=== PATIENT | male | born 1950 | race Caucasian/White ===

== ENCOUNTER 2018-10-31 04:55 | Day surgery (SDC) | payer OTHER, MEDICARE ==
[2018-10-19 08:21] VITALS: BMI 27.1
--- NOTE | 2018-10-31 08:20 | HP ---
[facility] - Chief Complaint Chief Complaint: left knee pain - Past Medical History Allergies/Adverse Reactions: Allergies Allergy/AdvReac Type Severity Reaction Status Date / Time No Known Allergies Allergy Verified 10/31/18 07:49 - Current Medications Current Medications: Home Medications Medication Instructions Recorded Atorvastatin Ca [Lipitor] 10 mg PO HS 10/19/18 Cholecalciferol (Vitamin D3) 1,000 unit PO DAILY 10/19/18 [Vitamin D3 -] Multivitamin [Multiple Vitamins] 1 each PO DAILY 10/19/18 Ranitidine [Zantac -] 150 mg PO BID PRN 10/19/18 Vitamin E 400 unit PO DAILY 10/19/18 Oxycodone HCl/Acetaminophen 1 tab PO Q6H #20 tablet MDD 4 10/31/18 [Percocet 5-325 mg Tablet] Satellite Physical Exam - Physical Examination Vital Signs: Vital Signs Period Temp Pulse Resp BP Sys/Alicia Pulse Ox Last 24 Hr 97.7 F-97.7 F 72-72 20-20 142-142/85-85 99 General Appearance: Well Nourished, Well Developed, Alert & Oriented x3 ENT: Clear Lung: Normal air movement Heart: Regular rate & rhythm Extremities: Other (left knee- + swelling, + ttp ,decr rom, + mcmurrays, nvi MRI + mt) Neurological: Intact, Alert, Oriented Satellite Impression/Plan - Impression/Plan Impression: left knee internal derangement Operative Procedure: left knee arthroscopy Date to be Performed: 10/31/18
[2018-10-31] MEDS ORDERED: LIDOCAINE 1%-EPI 1:100,000 30 ML MDV IJ ONE (08:56)
[2018-10-31] MEDS ORDERED: BUPIVACAINE HCL/PF 0.5% (5MG/ML) 10 ML VIAL ONE (08:57)
[2018-10-31] MEDS ORDERED: MIDAZOLAM HCL 2 MG/2 ML SINGLE DOSE VIAL ONE (09:10)
[2018-10-31] MEDS ORDERED: PROPOFOL 20 ML ONE (09:10)
[2018-10-31] MEDS ORDERED: BUPIVACAINE HCL/PF 0.5% (5MG/ML) 10 ML VIAL IJ ONE (09:38)
[2018-10-31] MEDS ORDERED: LIDOCAINE 1%/EPI 1:100000 (50 ML MULTI DOSE VIAL) NR ONE (09:38)
--- NOTE | 2018-10-31 09:51 | OP ---
Operative Note - Note: Operative Date: 10/31/18 Pre-Operative Diagnosis: internal derangement left knee Operation: arthroscopy left knee with chondro[place] [facility] [place] Diagnosis: Same as Pre-op Surgeon: Aleksander Hutchison Anesthesia: General Operative Report Dictated: Yes
[2018-10-31] MEDS ORDERED: DEXAMETHASONE SOD PHOSPHATE 4 MG/1 ML VIAL ONE (09:53)
[2018-10-31] MEDS ORDERED: KETOROLAC TROMETHAMINE 30 MG/1 ML VIAL ONE (09:53)
[2018-10-31] MEDS ORDERED: oxyCODONE HCL 5 MG TABLET PO PRN (10:11)
[2018-10-31] MEDS ORDERED: ONDANSETRON 4 MG/2 ML VIAL IVPUSH PRN (10:11)
[2018-10-31] MEDS ORDERED: LACTATED RINGERS SOLUTION 1,000 ML IV SCH (10:15)
--- NOTE | 2018-10-31 10:39 | OP ---
DATE OF OPERATION: 10/31/2018 PREOPERATIVE DIAGNOSIS: Internal derangement of the left knee. POSTOPERATIVE DIAGNOSIS: Internal derangement of the left knee. PROCEDURE: Arthroscopy, left knee, with a chondroplasty, medial femoral condyle. SURGICAL ATTENDING: Aleksander Hutchison MD ANESTHESIA: General with LMA. CLOSURE: Nylon 4-0. COMPLICATIONS: None. CONDITION: To recovery room in stable condition. DESCRIPTION OF OPERATIVE PROCEDURE: Patient taken to the operating room on October 31, 2018. General anesthesia with LMA was administered by the anesthesiologist. Left lower extremity was prepped and draped in the usual sterile fashion. Medial and lateral infrapatellar portals were infiltrated with 1% Xylocaine with epinephrine. Both portals were then made with a 15 blade followed by a blunt trocar. The scope trocar was placed in the lateral infrapatellar portal and up into the suprapatellar pouch. The knee was inflated with a cocktail of 10 mL of 1% Xylocaine, 10 mL of 0.5% Marcaine and 20 mL of arthroscopic saline. After allowing the anesthetic to work in the knee the procedure was performed. The pouch was visualized to be clean. The medial and lateral gutters were visualized to be clean. The undersurface of the patella and trochlea were visualized to be intact. With valgus stress on the knee the medial compartment was entered. The medial meniscus was visualized, probed, found to be intact. The medial femoral condyle had an area of grade 3-4 changes at around 45 degrees. Any loose articular cartilage was debrided using the shaver. The medial tibial plateau was basically intact. At 90 degrees the ACL was visualized, probed, found to be intact. In the figure-4 position the lateral compartment was entered. Lateral meniscus was visualized, probed, found to be intact. Lateral femoral condyle was run and found to be intact as well as the lateral tibial plateau. The knee was irrigated with copious amounts of irrigation. The portals were closed with 4-0 nylon. Prior to pulling the trocar 20 mL of 0.5% Marcaine was infused through the outflow portal for postoperative analgesia. A sterile pressure dressing was placed over the knee. The patient was awakened from anesthesia and transferred to recovery room in stable condition. No complication. Estimated blood loss negligible. Mary [id number]
[2018-10-31 11:53] VITALS: BP 134/71; PULSE 72; TEMP 97.8
--- NOTE | 2018-11-01 11:51 | PATH ---
Surgical Pathology Report Patient Name: ALEKSANDER CAMACHO [facility]. Rec. #: [id number] /Age/Gender: 1950 (Age: 68) / M Account: [id number] Location: [facility] SUR[facility] Taken: 10/31/2018 Received: 10/31/2018 Reported: 11/01/2018 Physicians: Aleksander Hutchison M.D. Specimen(s) Received LEFT KNEE SHAVINGS Clinical History Left knee tear Final Diagnosis KNEE, LEFT, ARTHROSCOPIC SHAVING: FIBROCARTILAGE WITH MYXOID DEGENERATIVE CHANGES, ALONG WITH PORTIONS OF SYNOVIUM AND HYALINE CARTILAGE. Electronically Signed Wei Norman M.D. Gross Description Received in formalin, labeled "left knee shavings," is a 5.0 x 4.3 x 0.4 cm. aggregate of kaiser-yellow soft tissue fragments. A medical detail representative portion is submitted in one cassette. /10/31/201810/31/2018
== END 2018-10-31 11:45 | disposition home or self-care (01) ==
LOC: JASU-SURG 04:55
PROVIDERS: ATTEND Orthopaedic Surgery
PROC: 0SBD4ZZ Excision of Left Knee Joint, Percutaneous Endoscopic Approach (ICD-10-PCS; principal; 2018-10-31 09:00)
DX: M23.42 Loose body in knee, left knee (principal); M23.8X2 Other internal derangements of left knee
CPT/HCPCS: 88304-TC; 94760